=== PATIENT | male | born 1960 | race Caucasian/White ===

== ENCOUNTER 2017-08-19 17:37 | Emergency (ER) | payer OTHER ==
[~2017-08-19] VITALS: Ht 165.1 cm; Wt 45.4 kg
[~2017-08-19 17:37] MED LIST: ATIVAN1 M1 PO; FOLIC ACID1 M1 PO; MINIPRESS1 MG PO; TYLENOL325 M1 PO; UNASYN 3 GM VIAL3 GM IV; VITAMIN B-1100 MG PO
[2017-08-19 19:28] LABS: ABSOLUTE BASOPHIL COUNT 0.1 /CUMM (0.0-0.2); ABSOLUTE EOSINOPHIL COUNT 0.1 /CUMM (0.0-0.7); ABSOLUTE GRANULOCYTE CT 2.6 /CUMM (1.4-6.5); ABSOLUTE LYMPH COUNT 1.4 /CUMM (1.2-3.4); ABSOLUTE MONOCYTE COUNT 0.5 /CUMM (0.10-0.60); BASOPHIL % 1.9 % (0.0-2.0); EOSINOPHIL % 1.9 % (0-5); GRANULOCYTE % 55.5 % (42.2-75.2); HEMATOCRIT 38.2 % (42-52); MEAN CORPUSCULAR HGB 34.1 PG (27.0-31.0); MEAN CORPUSCULAR HGB CONC 34.1 G/DL (33.0-37.0); MEAN CORPUSCULAR VOLUME 99.9 FL (80.0-94.0); PLATELET COUNT 174 /CUMM (130-400); RBC DISTRIBUTION WIDTH 13.8 % (11.5-14.5); RED BLOOD CELL CT 3.82 /CUMM (4.70-6.10); WHITE BLOOD CELL COUNT 4.6 /CUMM (4.8-10.8)
--- NOTE | 2017-08-19 19:56 | ED GENERAL ADULT ---
History of Present Illness General Chief Complaint: General Adult Stated Complaint: ?DEHYDRATION Source: patient Exam Limitations: no limitations Vital Signs & Intake/Output Vital Signs & Intake/Output Vital Signs Date Time Temp Pulse Resp B/P B/P Pulse O2 O2 Flow FiO2 Mean Ox Delivery Rate 08/19 2036 101 18 143/96 99 Room Air 08/19 1741 98.0 99 16 143/88 97 Room Air Allergies Coded Allergies: NO KNOWN ALLERGIES (07/10/12) Reconcile Medications Acetaminophen (Tylenol) 325 MG TABLET 2 TAB PO Q6P PRN PAIN SCALE 1-3 (MILD) Folic Acid 1 MG TABLET 1 TAB PO DAILY SUPPLEMENT Prazosin Hydrochloride (Minipress) 1 MG CAPSULE 1 MG PO AT BEDTIME night gonzales Thiamine HCl (Vitamin B-1) 100 MG TABLET 1 TAB PO DAILY SUPPLEMENT Triage Note: PT STATES HE IS DEHYDRATED "IT HAPPENS EVERY SUMMER". PT STATES HE ONLY HAS ONE KIDNEY AND IT IS "VERY DANGEROUS FOR HIM TO DEHYDRATE". Triage Nurses Notes Reviewed? yes Onset: Gradual Duration: day(s): Timing: constant HPI: 56-year-old male with a history of EtOH dependence presenting with complaints of feeling dehydrated. Patient reports that he works out in the heat all day, and that he does not drink water because he thinks that drinking water will give him a heat stroke. Endorses feeling very fatigued, dry mouth. No decrease in urinary output. Denies fevers, chest pain, shortness of breath, nausea, vomiting, diarrhea, abdominal pain, dysuria. (Jolly Bernabe) Past History Travel History Traveled to [place] past 21 day No Medical History Any Pertinent Medical History? see below for history Neurological: NONE EENT: NONE Cardiovascular: NONE Respiratory: NONE Gastrointestinal: NONE Hepatic: NONE Renal: NONE Musculoskeletal: NONE Psychiatric: alcohol dependence Endocrine: NONE Blood Disorders: NONE Cancer(s): NONE Other Medical Hx: multiple rib fractures History of MRSA: No History of VRE: No History of CDIFF: No Surgical History Surgical History: hernia repair-inguinal (left) Psychosocial History Who do you live with Family Services at Home None What is your primary language Syriac Tobacco Use: Current Daily Use Daily Tobacco Use Amount/Type: => 5 Cigarettes daily ETOH Use: alcoholic Illicit Drug Use: marijuana Family History Hx Contributory? No (Jolly Bernabe) Review of Systems Review of Systems Constitutional: Reports: see HPI. EENTM: Reports: no symptoms. Respiratory: Reports: no symptoms. Cardiovascular: Reports: no symptoms. GI: Reports: no symptoms. Genitourinary: Reports: no symptoms. Musculoskeletal: Reports: no symptoms. Skin: Reports: no symptoms. Neurological/Psychological: Reports: no symptoms. Hematologic/Endocrine: Reports: no symptoms. Immunologic/Allergic: Reports: no symptoms. (Jolly Bernabe) Physical Exam Physical Exam General Appearance: well developed/nourished, no apparent distress, alert, awake , comfortable Head: atraumatic, normal appearance Eyes: Bilateral: normal appearance. Neck: normal inspection Respiratory: normal breath sounds, lungs clear Cardiovascular: regular rate/rhythm Gastrointestinal: soft, non-tender Back: normal inspection Extremities: normal inspection Neurologic/Psych: awake, alert, oriented x 3, normal gait, normal mood/affect Skin: intact, normal color, warm/dry Core Measures ACS in differential dx? No CVA/TIA Diagnosis: No Sepsis Present: No Sepsis Focused Exam Completed? No (Jolly Brenabe) Progress Differential Diagnoses I considered the following diagnoses in my evaluation of the patient: [ Dehydration versus electrolyte derangement versus hypoglycemia] Plan of Care: Orders Procedure Date/time Status Add-on Test (ER Only) 08/19 2114 Active MAGNESIUM 08/19 1800 Complete CREATINE PHOSPHOKINASE 08/19 1800 Complete CBC WITHOUT DIFFERENTIAL 08/19 1800 Complete BASIC METABOLIC PANEL 08/19 1800 Complete Current Medications Sig/Mp Start time Last Medication Dose Stop Time Status Admin Metoprolol Tartrate 5 MG ONCE ONE 08/20 1999 CAN (Lopressor) 08/19 2000 Laboratory Tests 08/19/17 1903: Anion Gap 16, Estimated GFR > 60, BUN/Creatinine Ratio 7.8, Glucose 94, Calcium 9.5, Magnesium 1.9, Creatine Kinase 232 H, CBC w Diff NO MAN DIFF REQ, RBC 3.82 L, MCV 99.9 H, MCH 34.1 H, MCHC 34.1, RDW 13.8, MPV 7.0 L, Gran % 55.5, Lymphocytes % 29.5, Monocytes % 11.2 H, Eosinophils % 1.9, Basophils % 1.9, Absolute Granulocytes 2.6, Absolute Lymphocytes 1.4, Absolute Monocytes 0.5, Absolute Eosinophils 0.1, Absolute Basophils 0.1 08/19/17 1801: Urine Color Cancelled, Urine Clarity Cancelled, Urine pH Cancelled, Ur Specific [place] Cancelled, Urine Protein Cancelled, Urine Ketones Cancelled, Urine Nitrite Cancelled, Urine Bilirubin Cancelled, Urine Urobilinogen Cancelled, Ur Leukocyte Esterase Cancelled, Ur Microscopic Cancelled, Urine Hemoglobin Cancelled, Urine Glucose Cancelled Labs unremarkable Reports feeling better after receiving IV fluids Vital signs are within normal limits Patient is requesting to be discharged home Counseled on supportive care and strict return precautions Reiterated to patient several times that he should maintain adequate fluid intake, especially when in the heat for prolonged periods of time. Initial ED EKG: none (Jolly Bernabe) Departure Departure Disposition: HOME OR SELF CARE Condition: Stable Clinical Impression Primary Impression: Dehydration Secondary Impressions: Elevated CK Referrals: Patient Has No Primary Care Dr (PCP/Family) Additional Instructions: Maintain adequate fluid intake. Follow-up with your primary care provider for reevaluation. Return to the emergency department for any new or worsening symptoms. Departure Forms: Customer Survey General Discharge Information (Jolly Bernabe) PA/ELEPHANT KEEPER Co-Sign Statement Statement: ED Attending supervision documentation- [] I saw and evaluated the patient. I have also reviewed all the pertinent lab results and diagnostic results. I agree with the findings and the plan of care as documented in the PA's/ELEPHANT KEEPER's documentation. [X] I have reviewed the ED Record and agree with the PA's/ELEPHANT KEEPER's documentation. [] Additions or exceptions (if any) to the PAs/ELEPHANT KEEPER's note and plan are summarized below: [] (David SHOOK,Yasir Santos) Critical Care Note Critical Care Note Critical Care Time: non-applicable (Jolly Bernabe)
[2017-08-19 21:46] VITALS: BP 132/82
== END 2017-08-19 21:47 ==
LOC: ERH 17:37
PROVIDERS: Physician Assistant
DX: E86.0 Dehydration (principal); R78.89 Finding of other specified substances, not normally found in blood; R53.83 Other fatigue

== ENCOUNTER 2017-09-01 15:47 | Emergency (ER) | payer OTHER ==
--- NOTE | 2017-09-01 17:51 | ED GENERAL ADULT ---
History of Present Illness General Chief Complaint: ETOH/Drug Related Complaint Stated Complaint: "FATIGUE, ETOH," Source: patient Exam Limitations: no limitations Vital Signs & Intake/Output Vital Signs & Intake/Output Vital Signs Date Time Temp Pulse Resp B/P B/P Pulse O2 O2 Flow FiO2 Mean Ox Delivery Rate 09/02 0529 98.3 76 18 123/82 98 Room Air 09/02 0330 97.6 70 18 144/82 98 Room Air 09/02 0113 98.7 71 18 140/73 98 Room Air 09/01 2239 98.4 64 16 124/72 98 Room Air 09/01 1859 Room Air 09/01 1635 97.6 96 20 128/82 92 Room Air ED Intake and Output 09/02 0000 09/01 1200 Intake Total 0 Output Total 0 Balance 0 Intake, Oral 0 Output, Urine 0 Patient 99 lb 15.99 oz Weight Weight Reported by Patient Measurement Method Allergies Coded Allergies: NO KNOWN ALLERGIES (07/10/12) Reconcile Medications Multiple Vitamin (Multivitamins) 1 EACH TABLET 1 TAB PO DAILY SUPPLEMENT ( Reported) Triage Note: PT BIBA TO TRIAGE S/P BEING FOUND SITTING ON SIDE OF ROAD BY PD. PATIENT IS WELL KNOWN TO EMS AND THEY STATE HE IS AT HIS BASELINE MENTATION. PT DIZZY AND NAUSEAS AT TRIAGE WITH SPITTING AND DRY HEAVING NOTED. PT REPEATEDLY STANDING UP AT TRIAGE TO SPIT IN SINK DESPITE BEING ASKED TO STAY SEATED. HAS SOMEWHAT UNSTEADY GAIT. Triage Nurses Notes Reviewed? yes Onset: Abrupt Duration: day(s): (1), constant, continues in ED Timing: recent history Injury Environment: street Severity: mild, moderate No Modifying Factors: none HPI: 56-year-old male history of alcohol dependence brought in by ambulance for evaluation after being found sitting by the side of the road intoxicated. Patient reports that he drank an unknown amount of vodka today. He is refusing to say how much. He denies a history of withdrawal seizures. He does not want detox. No suicidal or homicidal ideation. No hallucinations no chest pain or shortness of breath no abdominal pain nausea or vomiting. He denies taking any medications at home. He is repeatedly asking to leave. (Leno Beckman) Past History Travel History Traveled to [place] past 21 day No Medical History Any Pertinent Medical History? see below for history Neurological: NONE EENT: NONE Cardiovascular: NONE Respiratory: NONE Gastrointestinal: NONE Hepatic: NONE Renal: ONLY 1 FUNCTIONING KIDNEY Musculoskeletal: NONE Psychiatric: alcohol dependence Endocrine: NONE Blood Disorders: NONE Cancer(s): L KIDNEY CANCER Other Medical Hx: multiple rib fractures History of MRSA: No History of VRE: No History of CDIFF: No Isolation History: Standard Surgical History Surgical History: hernia repair-inguinal (left) Psychosocial History Who do you live with Family Services at Home None What is your primary language Zambian Tobacco Use: Current Daily Use Daily Tobacco Use Amount/Type: => 5 Cigarettes daily ETOH Use: alcoholic Illicit Drug Use: marijuana Family History Hx Contributory? No (Leno Beckman) Review of Systems Review of Systems Constitutional: Reports: no symptoms. EENTM: Reports: no symptoms. Respiratory: Reports: no symptoms. Cardiovascular: Reports: no symptoms. GI: Reports: no symptoms. Genitourinary: Reports: no symptoms. Musculoskeletal: Reports: no symptoms. Skin: Reports: no symptoms. Neurological/Psychological: Reports: no symptoms. Hematologic/Endocrine: Reports: no symptoms. Immunologic/Allergic: Reports: no symptoms. All Other Systems: Reviewed and Negative (Leno Beckman) Physical Exam Physical Exam General Appearance: well developed/nourished, no apparent distress, alert, awake , intoxicated, thin Head: atraumatic, normal appearance Eyes: Bilateral: normal appearance, PERRL, EOMI. Ears, Nose, Throat: normal pharynx, normal ENT inspection, hearing grossly normal Neck: normal inspection, supple, full range of motion Respiratory: normal breath sounds, chest non-tender, no respiratory distress, lungs clear Cardiovascular: regular rate/rhythm, normal peripheral pulses Peripheral Pulses: 2+ radial (R), 2+ radial (L) Gastrointestinal: soft, non-tender Back: normal inspection, normal range of motion, no vertebral tenderness Extremities: normal inspection, normal capillary refill, normal range of motion, no edema Neurologic/Psych: no motor/sensory deficits, awake, alert, oriented x 3, normal gait Skin: intact, normal color, warm/dry Core Measures ACS in differential dx? No CVA/TIA Diagnosis: No Sepsis Present: No Sepsis Focused Exam Completed? No (Leno Beckman) Progress Differential Diagnoses I considered the following diagnoses in my evaluation of the patient: [Alcohol intoxication, alcohol withdrawal, drug intoxication, drug withdrawal, electrolyte abnormality, pancreatitis] Plan of Care: Orders Procedure Date/time Status Add-on Test (ER Only) 09/01 2224 Active LIPASE 09/01 1754 Complete Patient Safety Monitor 09/01 1716 Active URINE DRUG SCREEN FOR ER ONLY 09/01 1712 Complete URINALYSIS 09/01 1712 Complete MAGNESIUM 09/01 1712 Complete ETHANOL 09/01 1712 Complete COMPREHENSIVE METABOLIC PANEL 09/01 1712 Complete CBC WITHOUT DIFFERENTIAL 09/01 1712 Complete Laboratory Tests 09/01/17 1800: Urine Opiates Screen < 100, Methadone Screen < 40, Barbiturate Screen < 60, Ur Phencyclidine Scrn < 6.00, Amphetamines Screen < 100, U Benzodiazepines Scrn < 85, Urine Cocaine Screen < 50, Urine Cannabis Screen 17.00, Urine Color YEL, Urine Clarity CLEAR, Urine pH 6.0, Ur Specific [place] <= 1.005, Urine Protein NEG, Urine Ketones NEG, Urine Nitrite NEG, Urine Bilirubin NEG, Urine Urobilinogen 0.2, Ur Leukocyte Esterase NEG, Ur Microscopic EXAM NOT REQUIRED, Urine Hemoglobin NEG, Urine Glucose NEG 09/01/17 175: Anion Gap 12, Estimated GFR > 60, BUN/Creatinine Ratio 7.8, Glucose 99, Calcium 9.4, Magnesium 2.2, Total Bilirubin 0.6, AST 173 H, ALT 100 H, Alkaline Phosphatase 46, Total Protein 8.6 H, Albumin 4.9, Globulin 3.7, Albumin/ Globulin Ratio 1.3, Lipase 236, CBC w Diff NO MAN DIFF REQ, RBC 3.80 L, MCV 100.5 H, MCH 34.5 H, MCHC 34.3, RDW 14.0, MPV 6.8 L, Gran % 54.1, Lymphocytes % 32.8, Monocytes % 9.8 H, Eosinophils % 2.2, Basophils % 1.1, Absolute Granulocytes 2.8, Absolute Lymphocytes 1.7, Absolute Monocytes 0.5, Absolute Eosinophils 0.1, Absolute Basophils 0.1, Serum Alcohol 347.0 Patient is here after being found intoxicated by the side of the road. He offers no complaints. He is repeatedly asking to leave. He is not suicidal homicidal. Denies any drug use. He does not want a detox. He denies a history of withdrawal seizures. Labs ordered and reveal a alcohol level 347. He has a mild transaminitis AST greater than ALT. Normal T bili. Remaining labs are unremarkable. Patient will be In the emergency department until he is clinically sober or find a sober ride. Lipase was added on at 10:[address] Monaco pending clinical sobriety. Initial ED EKG: none Hand-Off Endorsed To: Carlos Enrique SHOOK,Damaso Chow Endorsed Time: 2229 Pending: other (SOBER RIDE/CLINICAL SOBRITETY) (Leno Beckman) Departure Departure Disposition: STILL A PATIENT Condition: Stable Clinical Impression Primary Impression: Alcohol intoxication Qualifiers: Complication of substance-induced condition: uncomplicated Qualified Code: F10.920 - Alcohol use, unspecified with intoxication, uncomplicated Referrals: Patient Has No Primary Care Dr (PCP/Family) Departure Forms: Customer Survey General Discharge Information (Leno Beckman) PA/APPLICATION LEAD Co-Sign Statement Statement: ED Attending supervision documentation- [x] I saw and evaluated the patient. I have also reviewed all the pertinent lab results and diagnostic results. I agree with the findings and the plan of care as documented in the PA's/APPLICATION LEAD's documentation. 09/02/17, 5:35am... Pt awake and alert... he is feeling well... he would like to go home, ambulates well. [] I have reviewed the ED Record and agree with the PA's/APPLICATION LEAD's documentation. [] Additions or exceptions (if any) to the PAs/APPLICATION LEAD's note and plan are summarized below: [] (Carlos Enrique SHOOK,Damaso Chow) Critical Care Note Critical Care Note Critical Care Time: non-applicable (Leno Beckman)
[2017-09-01 18:06] LABS: ABSOLUTE BASOPHIL COUNT 0.1 /CUMM (0.0-0.2); ABSOLUTE EOSINOPHIL COUNT 0.1 /CUMM (0.0-0.7); ABSOLUTE GRANULOCYTE CT 2.8 /CUMM (1.4-6.5); ABSOLUTE LYMPH COUNT 1.7 /CUMM (1.2-3.4); ABSOLUTE MONOCYTE COUNT 0.5 /CUMM (0.10-0.60); BASOPHIL % 1.1 % (0.0-2.0); EOSINOPHIL % 2.2 % (0-5); GRANULOCYTE % 54.1 % (42.2-75.2); HEMATOCRIT 38.2 % (42-52); MEAN CORPUSCULAR HGB 34.5 PG (27.0-31.0); MEAN CORPUSCULAR HGB CONC 34.3 G/DL (33.0-37.0); MEAN CORPUSCULAR VOLUME 100.5 FL (80.0-94.0); MEAN PLATELET VOLUME 6.8 FL (7.4-10.4); PLATELET COUNT 251 /CUMM (130-400); WHITE BLOOD CELL COUNT 5.1 /CUMM (4.8-10.8)
[2017-09-01] MEDS ORDERED: MULTIVITAMINS1 EAC9 PO (19:24)
[2017-09-02 05:29] VITALS: BP 123/82
== END 2017-09-02 05:53 | disposition still patient (30) ==
LOC: ERH 15:47
PROVIDERS: Physician Assistant Medical
DX: F10.129 Alcohol abuse with intoxication, unspecified (principal)
CPT/HCPCS: 80307; 81003; G0480